=== PATIENT | male | born 1975 | race Caucasian/White ===

== ENCOUNTER 2024-06-07 09:10 | Outpatient (CLI) | payer BC, SELFPAY ==
--- NOTE | 2024-06-07 09:14 | XR_ITS ---
FINAL REPORT CLINICAL HISTORY: left elbow fx approx month ago COMPARISON: 04/30/2024 FINDINGS: LEFT ELBOW: 3 images of the left elbow were obtained. The radial head fracture noted on the prior exam of 04/30/2024 remains present, with alignment unchanged. There is callus formation present at the fracture site. There is persistent effusion or hemarthrosis present. There is no soft tissue abnormality identified. IMPRESSION: Radial head fracture remains present, with alignment unchanged. There is callus formation present at the fracture site. Persistent joint effusion or hemarthrosis. Reviewed, Interpreted and Dictated by Simone Valle III, MD Transcribed by Debby Armando Authenticated and [facility]
== END 2024-06-07 23:59 | disposition home or self-care (01) ==
LOC: RAD 09:12
PROVIDERS: PCP Internal Medicine Adolescent Medicine; Visit Provider Orthopaedic Surgery
DX: M25.522 Pain in left elbow (principal); S52.125A Nondisplaced fracture of head of left radius, initial encounter for closed fracture
CPT/HCPCS: 73080

== ENCOUNTER 2024-07-12 09:34 | Outpatient (CLI) | payer BC, SELFPAY ==
--- NOTE | 2024-07-12 09:38 | XR_ITS ---
PROCEDURE INFORMATION: Exam: XR Left Elbow Exam date and time: 07/12/2024 9:46 AM Age: 48 years old Clinical indication: Pain; Elbow; Left; Additional info: Left elbow TECHNIQUE: Imaging protocol: Radiologic exam of the left elbow. Views: 3 or more views. COMPARISON: No relevant prior studies available. FINDINGS: Bones/joints: There is a persistent fracture of the radial head with 2 mm offset/depression of the articular margin. Remaining osseous structures and joint surfaces unremarkable. Soft tissues: Unremarkable. No joint effusion detected. IMPRESSION: Redemonstration of patient's known fracture of the radial head with mild displacement of the articular surface.
== END 2024-07-12 23:59 | disposition home or self-care (01) ==
LOC: RAD 09:35
PROVIDERS: Visit Provider Orthopaedic Surgery
DX: S52.125A Nondisplaced fracture of head of left radius, initial encounter for closed fracture (principal)
CPT/HCPCS: 73080

== ENCOUNTER 2024-08-02 09:47 | Outpatient (CLI) | payer BC, SELFPAY ==
--- NOTE | 2024-08-02 09:50 | XR_ITS ---
FINAL REPORT CLINICAL HISTORY: fx f/u COMPARISON: 07/12/2024 FINDINGS: LEFT ELBOW 3 views were obtained. Again noted is a fracture of the radial head. Bony alignment is stable. There is joint effusion or hemarthrosis. No significant callus formation is seen. The joint spaces are intact. There is no soft tissue abnormality. IMPRESSION: Radial head fracture with no significant callus formation. Reviewed, Interpreted and Dictated by Simone Valle III, MD Transcribed by Nathalia Ball Authenticated and [facility]
== END 2024-08-02 23:59 | disposition home or self-care (01) ==
LOC: RAD 09:48
PROVIDERS: PCP Internal Medicine Adolescent Medicine; Visit Provider Orthopaedic Surgery
DX: S52.125A Nondisplaced fracture of head of left radius, initial encounter for closed fracture (principal)
CPT/HCPCS: 73080

== ENCOUNTER 2024-08-20 11:00 | Outpatient (RCR) | payer BC, SELFPAY | END 2024-08-20 23:59 | disposition home or self-care (01) | LOC: OT 11:00 | PROVIDERS: PCP Internal Medicine Adolescent Medicine; Visit Provider Orthopaedic Surgery | DX: M25.522 Pain in left elbow (principal); S52.122A Displaced fracture of head of left radius, initial encounter for closed fracture | CPT/HCPCS: 97014; 97035; 97110; 97140; 97165; G0283 ==

== ENCOUNTER 2024-12-11 13:00 | Outpatient (RCR) | payer BC, SELFPAY | END 2024-12-11 23:59 | disposition home or self-care (01) | LOC: PT 13:00 | PROVIDERS: PCP Internal Medicine Adolescent Medicine; Visit Provider Nurse Practitioner | DX: M54.16 Radiculopathy, lumbar region (principal) | CPT/HCPCS: 97163 ==

== ENCOUNTER 2025-04-11 15:35 | Outpatient (CLI) | payer BC, SELFPAY ==
--- OUTSIDE RECORDS SUMMARY | 2025-02-20 13:15 | XMS_ITS | Encounter Summary ---
Author Organization [employer] ([place], [place], [place]) Address [address] [place] [address] Care Team Providers Care Jewelry Department Supervisor Name Role Phone Kar Wright MD Primary Care Provider [phone] Reason for Visit * Reason Comments Peripheral Neuropathy Back Pain Cervical Radiculopathy Encounter Details Date Type Department Care Team (Late st Contact Info) Description 02/20/2025 1:15 PM EDT Office Visit [facility] Neurology - [facility] [address] [facility] [address] [place] [address] Ashley Mccormick, DIPLOMATIC INTERPRETER/TRANSLATOR [address] [facility] [address] [place] [address] Neuropathy Social History Tobacco Use Types Packs/Day Years Used Date Smoking Tobacco: Some Days Cigarettes Smokeless Tobacco: Never Alcohol Use Standard Drinks/Week Comments Never 0 (1 standard drink = 0.6 oz pur e alcohol) Family and Community Support Answer Juan A e Recorded Help with Day to Day Activities Not on file 06/21/2024 Feeling Lonely or Isolated Not on file 06/21 Educational Attainment Answer Date Jed rded Speak language other than Armenian at home Not on file 06/21/2024 Want help with school or training Not on file 06/21/2024 Substance Use Answer Date Recorded Used prescription meds for non-medical reasons N ot on file 06/21/2024 Used illegal drugs past 12 months Not on file 06/21/2024 Sex and Gender Information Value Date Recorded Sex Assigned at Not on file Legal Sex Male 6:05 PM CDT Gender Identity Not on file Sexual Orientation Not on file documented as of this encounter Last Filed Vital Signs Vital Sign Reading Time Taken Comments Blood Pressure 137/85 02/20/2025 1:40 PM EDT Pulse 79 02/20/2025 1:40 PM EDT Temperature - - Respiratory Rate - - Oxygen Saturation 97% 02/20/2025 1:40 PM EDT Inhaled Oxygen Concentration - - Weight 160.3 kg (353 lb 8 oz) 02/20/2025 1:40 PM EDT Height 188 cm (6' 2 ) 02/20/2025 1:40 PM EDT Body Mass Index 45.39 02/20/2025 1:40 PM EDT documented in this encounter Progress Notes * Ashley Sprague Anny, DIPLOMATIC INTERPRETER/TRANSLATOR - 02/20/2025 1:15 PM EDT Subjective: Sourav Joel is a 49 y.o. male. Chief Complaint Patient presents with Peripheral Neuropathy Back Pain Cervical Radiculopathy I have reviewed and/or updated the following: Tobacco Allergies Meds Problems Med Hx Surg Hx Fam Hx History: Mr. Joel is here today for consultation regarding abnormal EMG . Experiencing left foot pain for over a year. He experiences burning on the side of her left foot around his ankle. The severity of the pain varies but often times it is severe and interferes with hisdaily life. More activity or standing worsens the pain. He stands a lot for his job at [employer]. Has tried Ibuprofen with no benefit. No symptoms in the right foot or leg. Has never tried gabapentin. 05/22/24 MRI Left Foot and Ankle - Muscular denervation along the lateral plantar nerve with irregularity of the lateral plantar nerve. 06/07/24 NCV/EMG ([facility]) - A sensory greater than motor polyneuropathy process. Normal EMG. 01/20/22 MRI Lumbar Spine ([facility] - Multi-level degenerative changes and several small disc herniations most pronounced at L5-S1 on the left. Over time he does feel his lower back pain has worsened, described as numb/burning sensation to thelower back that comes and goes. Sometimes experiences burning sensation to the left lateral calf and thigh. 12/12/24 NCV/EMG - Left L4-5 radiculopathy, right L5-S1 radiculopathy. Today: Saw orthopedics who gave him an SI joint injection. He had 3-4 days of benefit. States they also ordered an MRI of the left ankle. Continues gabapentin which helps his nerve pain. Current dose is adequate. Review of Systems Musculoskeletal: Positive for arthralgias. Objective: BP 137/85 Pulse 79 Ht 1.88 m (6' 2 ) Wt (!) 160.3 kg (353 lb 8 oz) SpO2 97% BMI 45.39 kg/m?? Physical Exam Constitutional: He is oriented to person, place, and time. HENT: Head: Normocephalic. Eyes: Pupils are equal, round, and reactive to light. Conjunctivae are normal. Cardiovascular: Normal rate. Pulmonary/Chest: Effort normal. Abdominal: Normal appearance. Musculoskeletal: General: Normal range of motion. Cervical back: Normal range of motion. Neurological: He is alert and oriented to person, place, and time. Decreased sensation (tmp, vib) left LE (L5-S1 distribution) Skin: Skin is warm and dry. Psychiatric: Mood normal. Neurological Exam Mental Status Alert. Oriented to person, place, and time. Cranial Nerves CN III, IV, : Extraocular movements intact bilaterally. Pupils equal round and reactive to light bilaterally. Decreased sensation (tmp, vib) left LE (L5-S1 distribution) . Assessment: 1. Neuropathy Plan: Diagnoses and all orders for this visit: Neuropathy - gabapentin (NEURONTIN) 300 MG capsule; Take 1 capsule (300 mg total) by mouth 4 (four) times daily. Max Daily Amount: 1,200 mg Return in about 6 months (around 08/22/2025). Mr. Joel has had left neuropathic foot pain for over a year. NCV study 06/07/24 showed a sensorygreater than motor polyneuropathy process. EMG 12/12/24 showed left L4-5 radiculopathy and right L5-S1 radiculopathy. Had new MRI L-spine done and was referred to orthopedics who did SI joint injection. They also ordered a left ankle MRI. Continue gabapentin, re-filled today. F/u 6 months. documented in this encounter Plan of Treatment Not on file documented as of this encounter Visit Diagnoses Diagnosis Neuropathy Mononeuritis of unspecified site documented in this encounter Care Teams Jewelry Department Supervisor Relationship Specialty Start Date End Date Kar Wright MD PCP - General Podiatry 06/20/24 documented as of this encounter
--- OUTSIDE RECORDS SUMMARY | 2025-04-11 15:37 | XMS_ITS | Encounter Summary ---
Author Organization [employer] ([place], [place], [place], [place]) Address [address] [place] [address] Care Team Providers Care Therapeutic Mentor Name Role Phone Kar Wright MD Primary Care Provider [phone] Reason for Visit * Reason Comments Medication Refill Encounter Details Date Type Department Care Team (Late st Contact Info) Description 04/08/2025 Refill [facility] Neurology - [facility] [address] [facility] [address] [place] [address] Ashley Mccormick, ROSLYN [address] [facility] [address] [place] [address] Neuropathy Social History Tobacco Use Types Packs/Day [...] Date Jed rded Speak language other than Sami at home Not on file 06/21/2024 Want [...] on file documented as of this encounter Plan of Treatment Not on file documented as of this encounter Visit Diagnoses Diagnosis Neuropathy Mononeuritis of unspecified site documented in this encounter Care Teams Therapeutic Mentor Relationship Specialty Start Date End Date Kar Wright MD PCP - General Podiatry 06/20/24 documented as of this encounter
--- OUTSIDE RECORDS SUMMARY | 2025-04-11 15:37 | XMS_ITS | Referral Summary ---
Author Organization [employer] ([place], [place], [place], [place]) Address [address] [place] [address] Care Team Providers Care Refrigeration Repair Supervisor Name Role Phone Kar Wright MD Primary Care Provider [phone] Encounters Date Type Department Care Team Description 04/08/2025 Refill [facility] Neurology [facility] [address] [place] [address] Aslhey Mccormick APRN Neuropathy 02/20/2025 Travel 02/20/2025 1:15 PM EDT Office Visit [facility] [address] [place] [address] Ashley Mccormick APRN Neuropathy 01/29/2025 Abstract [facility] [address] [place] [address] Christi Corbin CMA from Last 3 Months Allergies Active Allergy Reactions Criticality Noted Date Comments Shellfish Containing Products 2021 Medications Trulicity 1.5 mg/0.5 mL syringe Inject 0.5 mLs (1.5 mg total) subcutaneously once a week. 4 Active gabapentin (NEURONTIN) 300 MG capsuleIndicat ions:Neuropath y Take 1 capsule (300 mg total) by mouth 4 (four) times daily. Max Daily Amount: 1,200 mg 120 capsule 5 5 026 Active Active Problems No known active problems Social History Tobacco Use Types Packs/Day Years Used Date Smoking Tobacco: Some Days Cigarettes Smokeless Tobacco: Never Tobacco Cessation:Ready to Q uit: Not Asked; Counseling Given: Not Answered Alcohol Use Standard Drinks/Week Comments Never 0 (1 standard drink = 0.6 oz pur e alcohol) Family and Community Support Answer Juan A e Recorded Help with Day to Day Activities Not on file 06/21/2024 Feeling Lonely or Isolated Not on file 06/21 Educational Attainment Answer Date Jed rded Speak language other than Emirati at home Not on file 06/21/2024 Want [...] on file Sexual Orientation Not on file Last Filed Vital Signs Vital Sign Reading [...] Mass Index 45.39 02/20/2025 1:40 PM EDT Plan of Treatment Not on file [place] [place] [id number] BLUE CROSS/BLUE SHIELD Care Teams Refrigeration Repair Supervisor Relationship Specialty Start Date End Date Kar Wright MD PCP - General Podiatry 06/20/24
--- OUTSIDE RECORDS SUMMARY | 2025-04-11 15:37 | XMS_ITS | Clinical Summary ---
Author Organization [employer] ([place], [place], [place], [place]) Address [address] [place] [address] Care Team Providers Care Real Estate Assistant Name Role Phone Kar Wright MD Primary Care Provider [phone] Allergies Active Allergy Reactions Criticality Noted Date [...] Active Active Problems No known active problems Encounters Date Type Department Care Team Description 04/08/2025 Refill [facility] Neurology [facility] [address] [place] [address] Ashley Mccormick APRN Neuropathy 02/20/2025 1:15 PM EDT Office Visit [facility] [address] [place] [address] Ashley Mccormick APRN Neuropathy 02/20/2025 Travel 01/29/2025 Abstract [facility] [address] [place] [address] Christi Corbin CMA from Last 3 Months Family History Medical History Relation Name Comments Diabetes Father Heart disease Father Hypertension Father Hypertension Mother Relation Name Status Comments Father Mother Social History Tobacco Use Types Packs/Day Years [...] Date Jed rded Speak language other than Cape Verdean at home Not on file 06/21/2024 Want [...] 02/20/2025 1:40 PM EDT Plan of Treatment Health Maintenance Due Date Last Done Comments CT Colonography 1977 Colonoscopy 1977 Colorectal Cancer Screening 1977 FOBT/FIT 1977 Fit-DNA (Cologuard) 1977 Sigmoidoscopy 1977 Depression Screening (12+) 1989 Tobacco Cessation Counseling and Screening (12+) 08/13 HIV Screening 1992 Hepatitis C Screening 1995 Pneumococcal Vaccine: 0-49 Years (1 of 2 - PCV) 1995 DTAP/TDAP/TD VACCINES (2 - Td or Tdap) 10/26/2005 Lipid Panel 2012 COVID-19 VACCINE (2023- season) 2024 Influenza Vaccine (#1) 2025 Insurance BLUE CROSS/BLUE SHIELD Care Teams Real Estate Assistant Relationship Specialty Start Date End Date Kar Wright MD PCP - General Podiatry 06/20/24
--- OUTSIDE RECORDS SUMMARY | 2025-04-11 15:37 | XMS_ITS | Clinical Summary ---
Author Organization [facility] Address [address] [place] [address] Phone [email or web address] Care Team Providers Care Roof Slater Name Role Phone Unavailable Primary Care Provider Unavailabl e Allergies No known active allergies Medications Trulicity, dulaglutide, 1.5 mg/0.5mL SC Auto-injector INJECT 1.5 MG SUBCUTANEOUSLY ONCE A WEEK DIRECTED 4 Active gabapentin (NEURONTIN) 300 MG capsule 5 Active Active Problems No known active problems Social History Tobacco Use Types Packs/Day Years Used Date Smoking Tobacco: Every Day Cigarettes Smokeless Tobacco: Never Tobacco Cessation:Ready to Q uit: Not Asked; Counseling Given: Not Answered Intimate Partner Violence Answer Date R ecorded Insults You Not on file 08/05/2021 Threatens You Not on file 08/05/2021 Screams at You Not on file 08/05/2021 Physically Hurt Not on file 08/05/2021 Intimate Partner Violence Score Not on file 08/05/2021 Depression Answer Date Recorded PHQ Total Score 0 09/04/2024 Stress Answer Date Recorded Stress in your Life Not on file 07/02/2024 Dealing with Stress 3 07/02/2024 Sex and Gender Information Value Date Recorded Sex Assigned at Not on file Legal Sex Male 6:44 PM DENTAL TECH Gender Identity Not on file Sexual Orientation Not on file Last Filed Vital Signs Vital Sign Reading Time Taken Comments Blood Pressure 123/82 09/20/2024 3:51 PM EST Pulse 104 09/20/2024 3:51 PM EST Temperature 36.2 C (97.2 F) 08/05/2021 12:58 PM EST Respiratory Rate 20 09/20/2024 3:51 PM EST Oxygen Saturation 97% 09/20/2024 3:51 PM EST Inhaled Oxygen Concentration - - Weight 171 kg (377 lb) 08/05/2021 12:58 PM EST Height 188 cm (6' 2 ) 08/05/2021 12:58 PM EST Body Mass Index 48.4 08/05/2021 12:58 PM EST Plan of Treatment Health Maintenance Due Date Last Done Comments CT Colonography 1977 Colonoscopy 1977 Colorectal Cancer Screening Combo 1977 DNA Cologuard 1977 Dental Cleaning/Exam 1977 FIT or FOBT Test 1977 HIV Screening 1977 Hepatitis C Screening 1977 Sigmoidoscopy 1977 Hep B Infection Screening - Triple Screen 1995 Tetanus Diphtheria and Pertu ssis Immunization (2 - Tdap) 10/28/1995 10/27/1995 Hepatitis B Immunization (1 of 3 - 19+ 3-dose series) 1996 Pneumococcal: Ped (0 to 5 Yr s) and At-Risk Member (6 to 64 Yrs) (1 of 2 - PCV) 1996 Annual Preventive Exam 08/05/2022 08/05/2021 Covid-19 Immunization (1 - 2 024-25 season) 2024 Influenza Immunization (#1) 2025 HIB Immunization Aged Out No longer e ligible based on patient's age to complete this topic HPV Immunization Aged Out No longer e ligible based on patient's age to complete this topic Hepatitis A Immunization Aged Out No longer eligible based on patient's age to complete this topic Polio Immunization Aged Out No longer eligible based on patient's age to complete this topic Insurance OPT OUT NO COPAY NB
--- NOTE | 2025-04-11 15:38 | XR_ITS ---
FINAL REPORT CLINICAL HISTORY: LEFT FOOT PAIN SWELLING OF LEFT FOOT FINDINGS: LEFT FOOT Three views were obtained. There is no fracture or dislocation. The joint spaces appear normal. No soft tissue abnormality is identified. There is mild calcaneal spurring. IMPRESSION: No acute process. Reviewed, Interpreted and Dictated by Aj Morin MD Transcribed by Renae Seymour Authenticated and [facility]
--- OUTSIDE RECORDS SUMMARY | 2025-04-11 15:38 | XMS_ITS | Encounter Summary ---
Author Organization [employer] ([place], [place], [place], [place]) Address [address] [place] [address] Care Team Providers Care Mixer Blender Name Role Phone Kar Wright MD Primary Care Provider [phone] Reason for Referral * Consultation (Routine) - Closed Specialty Diagnoses / Procedures Referred By Matthew t Referred To Contact Neurology Diagnoses Abnormal results of other function studies of peripheral nervous system New pt-Abnormal EMG Results Kar Wright MD [address] [address] Phone: tel: fax: [facility] Neurology - [facility] [address] [place] [address] Phone: tel: fax: Referral ID Status Reason Start Date Expiration Date Visits Re quested Visits Authorized [id number] Closed 06/14/2024 06/14/2025 1 1 Encounter Details Date Type Department Care Team (Late st Contact Info) Description 06/14/2024 Outside Orders [facility] Neurology - [facility] [address] [place] [address] Kar Wright MD [address] [address] Abnormal results of other function studies of peripheral nervous system (Primary Dx) Social History Tobacco Use Types Packs/Day Years Used Date Smoking Tobacco: Never Assessed Sex and Gender Information Value Date Recorded Sex Assigned at Not on file Legal Sex Male 6:05 PM CDT Gender Identity Not on file Sexual Orientation Not on file documented as of this encounter Plan of Treatment Scheduled Referrals Name Type Priority Associated Diagnoses Order Schedule Ambulatory referral to Neurology Outpatient Referral Routine Abnormal results of other function studies of peripheral nervous system Ordered: 06/14/2024 documented as of this encounter Visit Diagnoses Diagnosis Abnormal results of other function studies of peripheral nervous system- Primary documented in this encounter Care Teams Mixer Blender Relationship Specialty Start Date End Date Kar Wright MD PCP - General Podiatry 06/20/24 documented as of this encounter
--- OUTSIDE RECORDS SUMMARY | 2025-04-11 15:38 | XMS_ITS | Encounter Summary ---
Author Organization [employer] ([place], [place], [place], [place]) Address [address] [place] [address] Care Team Providers Care Coding Specialist Home Health Name Role Phone Kar Wright MD Primary Care Provider [phone] Encounter Details Date Type Department Care Team (Latest Contact Info) Description 02/20/2025 Travel Social History Tobacco Use Types Packs/Day Years [...] Date Jed rded Speak language other than Uruguayan at home Not on file 06/21/2024 Want [...] documented as of this encounter Visit Diagnoses Not on filedocumented in this encounter Care Teams Coding Specialist Home Health Relationship Specialty Start Date End Date Kar Wright MD PCP - General Podiatry 06/20/24 documented as of this encounter
--- OUTSIDE RECORDS SUMMARY | 2025-04-11 15:38 | XMS_ITS | Clinical Summary ---
Author Organization [facility] Address [address] [facility] [address] [place] [address] Care Team Providers Care Cutting Machine Fixer Name Role Phone Pcp, None Primary Care Provider Unavailabl e Social History Tobacco Use Types Packs/Day Years Used Date Smoking Tobacco: Never Assessed Sex and Gender Information Value Date Recorded Sex Assigned at Not on file Legal Sex Male 8:58 AM EST Gender Identity Not on file Sexual Orientation Not on file Plan of Treatment Health Maintenance Due Date Last Done Comments CT Colonography 1977 Colonoscopy 1977 Colorectal Cancer Screening 1977 FIT-DNA (Cologuard) 1977 FIT 1977 FOBT 1977 HIV Screening 1977 Hepatitis C Screening 1977 Lipid Panel 1977 Sigmoidoscopy 1977 MMR Vaccines (1 of 1 - Stand kali series) 1978 Hepatitis B Screening 1995 DTaP/Tdap/Td Vaccines (1 - Tdap) 1996 Hepatitis B Vaccines (1 of 3 - 19+ 3-dose series) 1996 COVID-19 Vaccine ( - 2023-2 5 season) 2024 Depression Risk Screening 08/29/2024 SDOH Screening 08/29/2024 Influenza Vaccine (#1) 2025 Zoster Vaccines (1 of 2) 2027 HIB Vaccines Aged Out No longer eligi ble based on patient's age to complete this topic HPV Vaccines Aged Out No longer eligi ble based on patient's age to complete this topic Hepatitis A Vaccines Aged Out No long er eligible based on patient's age to complete this topic IPV Vaccines Aged Out No longer eligi ble based on patient's age to complete this topic Meningococcal B Vaccine Aged Out No l onger eligible based on patient's age to complete this topic Meningococcal Vaccine Aged Out No cole gigi eligible based on patient's age to complete this topic Pneumococcal Vaccine Aged Out No long er eligible based on patient's age to complete this topic Rotavirus Vaccines Aged Out No longer eligible based on patient's age to complete this topic Insurance [employer] Care Teams Cutting Machine Fixer Relationship Specialty Start Date End Date Pcp, None PCP - General 09/01/21
--- OUTSIDE RECORDS SUMMARY | 2025-04-11 15:38 | XMS_ITS | Encounter Summary ---
Author Organization [employer] ([place], [place], [place], [place]) Address [address] [place] [address] Care Team Providers Care Forestry Adviser Name Role Phone Kar Wright MD Primary Care Provider [phone] Encounter Details Date Type Department Care Team (Late st Contact Info) Description 01/29/2025 Abstract [facility] Neurology - [facility] [address] [place] [address] Christi Corbin CMA Social History Tobacco Use Types Packs/Day Years [...] Date Jed rded Speak language other than Anguillan at home Not on file 06/21/2024 Want [...] on filedocumented in this encounter Care Teams Forestry Adviser Relationship Specialty Start Date End Date Kar Wright MD PCP - General Podiatry 06/20/24 documented as of this encounter
[2025-04-11 16:19] LABS: Hematocrit 39.7 % (42.0-52.0); Hemoglobin 13.2 g/dL (14.1-18.0); Immature Granulocytes % 0.3 %; Mean Corpuscular HGB Conc 33.2 g/dL (31.8-35.4); Mean Corpuscular Hemoglobin 30.0 pg (27.0-31.2); Mean Corpuscular Volume 90.2 fl (80-94); Nucleated Red Blood Cells % 0 %; Platelet Count 235 K/mm3 (142-424); Red Blood Count 4.40 M/mm3 (4.60-6.20); Red Cell Distribution Width-SD 44.7 fL; White Blood Count 6.7 K/mm3 (4.8-10.8)
[2025-04-11 16:29] LABS: Uric Acid 4.9 mg/dl (3.5-8.5)
[2025-04-11 16:37] LABS: C-Reactive Protein 16.3 mg/L (0-4)
== END 2025-04-11 23:59 | disposition home or self-care (01) ==
LOC: LAB 15:35
PROVIDERS: PCP Internal Medicine Adolescent Medicine; Visit Provider Nurse Practitioner Family
DX: M79.672 Pain in left foot (principal); M79.89 Other specified soft tissue disorders
CPT/HCPCS: 36415; 73630; 84550; 85025; 85651; 86140

== ENCOUNTER 2025-05-04 09:30 | Emergency (ER) | payer BC, SELFPAY ==
--- OUTSIDE RECORDS SUMMARY | 2025-04-22 16:30 | XMS_ITS | Encounter Summary ---
Author Organization [facility] Address [address] [place] [id number] Phone [email or web address] Care Team Providers Care Surgery Attendant Name Role Phone Unavailable Primary Care Provider Unavailabl e Reason for Visit * Reason Comments Return to Work / Duty Encounter Details Date Type Department Care Team (Latest Contact Info) Description 04/22/2025 4:30 PM EDT Clinical Support [facility] [place] [address] [facility] [address] [place] [address] Rudy Vega RN [address] [place] [address] Return to work evaluation (Primary Dx) Social History Tobacco Use Types Packs/Day Years Used Date Smoking Tobacco: Every Day Cigarettes Smokeless Tobacco: Never Intimate Partner Violence Answer Date R ecorded [...] on file 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 Gender Identity Not on file Sexual Orientation Not on file documented as of this encounter Last Filed Vital Signs Vital Sign Reading Time Taken Comments Blood Pressure 158/89 04/22/2025 3:48 PM EDT Pulse 101 04/22/2025 3:48 PM EDT Temperature - - Respiratory Rate 18 04/22/2025 3:48 PM EDT Oxygen Saturation 95% 04/22/2025 3:48 PM EDT Inhaled Oxygen Concentration - - Weight - - Height - - Body Mass Index - - documented in this encounter Patient Instructions * Patient Instructions* Rudy Vega RN - 04/22/2025 4:30 PM EDT RTW Regular Duty per release note RTC PRN documented in this encounter Progress Notes * Rudy Vega RN - 04/22/2025 4:30 PM EDT Subjective Sourav Joel is a 49 y.o. male who presents for personal return to work after personal medical leave of absence for GOUT. 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 No LDW: 04/09/2025 DOS: N/A PROCEDURE: N/A SURGEON: N/A RELEASE: Regular Duty 04/22/25 Additional notes from phone call: None PMLOA. TM off r/t gout flare up of right foot. TM states started on Colchicine. Tm states this was an initial DX. TM states pain to foot has resolved. TM states swelling resolved. TM states 0/10 at rest and worst. TM states he feels ready to RTW. Triage nurse: ASC RN HPI History Reviewed: Tobacco Allergies Meds Med Hx Surg Hx Objective Visit Vitals BP (!) 158/89 Pulse 101 Resp 18 SpO2 95% Smoking Status Every Day Review of Systems PHQ-9 Total Score: 0 (04/22/2025 3:51 PM) Physical Exam Assessment: ICD-10-CM ICD-9-CM 1. Return to work evaluation Z76.89 V72.85 No orders of the defined types were placed in this encounter. Patient Instructions RTW Regular Duty per release note RTC PRN documented in this encounter Plan of Treatment Not on file documented as of this encounter Visit Diagnoses Diagnosis Return to work evaluation- Primary Other specified examination documented in this encounter
[2025-05-04] VITALS (9 sets, daily range): BP systolic 112–161; BP diastolic 55–101; PULSE 59–87; RESP 17–18; TEMP 36.6–36.8; O2SAT 96–97; BMI 44.8
--- NOTE | 2025-05-04 09:49 | CT_ITS ---
PROCEDURE INFORMATION: Exam: CT Abdomen And Pelvis With Contrast Exam date and time: 05/04/2025 10:23 AM Age: 49 years old Clinical indication: Abdominal pain; Generalized; Additional info: Diverticulitis vs. Left ureteral stone TECHNIQUE: Imaging protocol: Computed tomography of the abdomen and pelvis with contrast. Radiation optimization: All CT scans at this facility use at least one of these dose optimization techniques: automated exposure control; mA and/or kV adjustment per patient size (includes targeted exams where dose is matched to clinical indication); or iterative reconstruction. Contrast material: ISOVUE; Contrast volume: 75 ml; Contrast route: IV; COMPARISON: No relevant prior studies available. FINDINGS: Lungs: The lung bases are clear. Diaphragm: Small hiatus hernia. Liver: The liver is normal in appearance. No focal liver mass or intrahepatic biliary dilatation. Gallbladder and biliary ducts: The gallbladder is unremarkable with no calcified stones visualized and no strandy inflammatory changes surrounding the gallbladder. Pancreas: The pancreas is normal in appearance. No evidence of pancreatic ductal dilatation. Spleen: Multiple splenic calcifications suggesting old granulomatous disease. Adrenal glands: There is a 2 cm left adrenal nodule which is relatively low-density with Hounsfield units averaging about 11 suggesting a benign left adrenal adenoma. The right adrenal gland is normal in appearance. Kidneys and ureters: The right kidney is normal in appearance. There is trace left hydronephrosis and left hydroureter secondary to a 2 mm calculus at the left UVJ which has almost passed into the urinary bladder. Stomach and bowel: The small bowel loops are not thickened and are nondilated. The colon is normal in appearance. Appendix: The appendix is normal in appearance. No evidence of appendicitis. Intraperitoneal space: Unremarkable. No free air. No significant fluid collection. Vasculature: Unremarkable. No abdominal aortic aneurysm. Lymph nodes: Unremarkable. No enlarged lymph nodes. Urinary bladder: The urinary bladder villa are not thickened. There is a fat containing periumbilical hernia. No entrapped bowel loop. Reproductive: Unremarkable as visualized. Bones/joints: There is normal anatomic alignment of the spine. No acute osseous lesions appreciated. Soft tissues: Small fat containing bilateral inguinal hernias. IMPRESSION: 1. Mild left hydronephrosis and left hydroureter secondary to a 2 mm calculus at the left UVJ which has almost passed into the urinary bladder. 2. There is a 2 cm low-density left adrenal nodule suggesting a benign left adrenal adenoma.
--- OUTSIDE RECORDS SUMMARY | 2025-05-04 09:50 | XMS_ITS | Clinical Summary ---
Author Organization [employer] ([place], [place], [place], [place]) Address [address] [place] [address] Care Team Providers Care Cyber Incident Handler Name Role Phone Kar Wright MD Primary Care Provider [phone] Allergies Active Allergy Reactions Criticality Noted Date [...] Type Department Care Team Description 04/08/2025 Refill [facility] Neurology [place] [address] [place] [address] Ashley Mccormick APRN Neuropathy 02/20/2025 1:15 PM EDT Office Visit [place] [address] [place] [address] Ashley Mccormick APRN Neuropathy 02/20/2025 Travel from Last 3 Months Family History Medical [...] Date Jed rded Speak language other than Sammarinese at home Not on file 06/21/2024 Want [...] Tdap) 10/26/2005 Lipid Panel 2012 COVID-19 VACCINE ( - season) 2024 Influenza Vaccine (#1) 2025 Insurance BLUE CROSS/BLUE SHIELD Care Teams Cyber Incident Handler Relationship Specialty Start Date End Date Kar Wright MD PCP - General Podiatry 06/20/24
--- OUTSIDE RECORDS SUMMARY | 2025-05-04 09:50 | XMS_ITS | Encounter Summary ---
Author Organization [facility] Address [address] [place] [address] Phone [email or web address] Care Team Providers Care Licensed Vocational Nurse Name Role Phone Unavailable Primary Care Provider Unavailabl e Encounter Details Date Type Department Care Team (Late st Contact Info) Description 04/19/2025 Telephone [facility] [address] [place] [address] No, [place] [address] Social History Tobacco Use Types Packs/Day Years [...] on file Legal Sex Male 6:44 PM [employer]ER [employer] Gender Identity Not on file Sexual Orientation Not on file documented as of this encounter Miscellaneous Notes * Telephone Encounter - COLLEEN TUCKER - 04/19/2025 3:17 PM EDT Sourav Wisam calls clinic to discuss return to work after personal medical leave of absence for GOUT. 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 No LDW: 04/09/2025 DOS: N/A PROCEDURE: N/A SURGEON: N/A RELEASE: Regular Duty Additional notes from phone call: None If WMLOA, still getting compensation from work comp? N/A If WMLOA, treatment for any personal medical condition during leave? No If PMLOA, work-related injury immediately before leave? No Same day occ or personal follow up scheduled? No Reviewed and/or scheduled for WC/WH? No Request sent to confirm cost center? N/A COLLEEN TUCKER documented in this encounter Plan of Treatment Not on file documented as of this encounter Visit Diagnoses Not on filedocumented in this encounter
--- OUTSIDE RECORDS SUMMARY | 2025-05-04 09:50 | XMS_ITS | Clinical Summary ---
Author Organization [facility] Address [address] [place] [address] Phone [email or web address] Care Team Providers Care Marina Dry Dock Manager Name Role Phone Unavailable Primary Care Provider Unavailabl e Allergies No known active allergies Medications Trulicity, dulaglutide, 1.5 mg/0.5mL SC Auto-injector INJECT 1.5 MG SUBCUTANEOUSLY ONCE A WEEK DIRECTED 4 Active gabapentin (NEURONTIN) 300 MG capsule 5 Active colchicine 0.6 MG tablet Take 0.6 mg by mouth 1 (one) time each day. 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
--- OUTSIDE RECORDS SUMMARY | 2025-05-04 09:50 | XMS_ITS | Referral Summary ---
Author Organization [employer] ([place], [place], [place], [place]) Address [address] [place] [address] Care Team Providers Care Urologist Md Name Role Phone Kar Wright MD Primary Care Provider [phone] Encounters Date Type Department Care Team Description 04/08/2025 Refill [facility] [address] [place] [address] Ashley Mccormick APRN Neuropathy 02/20/2025 Travel 02/20/2025 1:15 PM EDT Office Visit [place] [address] [place] [address] Ashley Mccormick APRN Neuropathy from Last 3 Months Allergies Active Allergy [...] Date Jed rded Speak language other than South Sudanese at home Not on file 06/21/2024 Want [...] Plan of Treatment Not on file [place] [address] [place] [id number] BLUE CROSS/BLUE SHIELD Care Teams Urologist Md Relationship Specialty Start Date End Date Kar Wright MD PCP - General Podiatry 06/20/24
--- OUTSIDE RECORDS SUMMARY | 2025-05-04 09:50 | XMS_ITS | Clinical Summary ---
Author Organization [facility] Address [address] [facility] [address] [place] [address] Care Team Providers Care Publishing Agent Name Role Phone Pcp, None Primary Care [...] topic Insurance GENERIC WORK COMP Care Teams Publishing Agent Relationship Specialty Start Date End Date Pcp, None PCP - General 09/01/21
--- OUTSIDE RECORDS SUMMARY | 2025-05-04 09:50 | XMS_ITS | Encounter Summary ---
Author Organization [employer] ([place], [place], [place], [place]) Address [address] [place] [address] Care Team Providers Care Brim Setter Name Role Phone Kar Wright MD Primary Care Provider [phone] Reason for Referral * Consultation (Routine) - Closed Specialty Diagnoses / Procedures Referred By Matthew t Referred To Contact Neurology Diagnoses Abnormal results of other function studies of peripheral nervous system New pt-Abnormal EMG Results Kar Wrihgt MD [address] [address] Phone: tel: fax: [facility] Neurology - [facility] [address] [place] [address] Phone: tel: fax: Referral ID Status Reason Start Date Expiration Date Visits Re quested Visits Authorized [id number] Closed 06/14/2024 06/14/2025 1 1 Encounter Details Date Type Department Care Team (Late st Contact Info) Description 06/14/2024 Outside Orders [facility] Neurology - [facility] [address] [place] [address] Kar Wright MD [address] [address] Abnormal results of other function studies of [...] Primary documented in this encounter Care Teams Brim Setter Relationship Specialty Start Date End Date Kar Wright MD PCP - General Podiatry 06/20/24 documented as of this encounter
--- OUTSIDE RECORDS SUMMARY | 2025-05-04 09:50 | XMS_ITS | Encounter Summary ---
Author Organization [employer] ([place], [place], [place], [place]) Address [address] [place] [address] Care Team Providers Care Shellfish Shucker Name Role Phone Kar Wright MD Primary Care Provider [phone] Reason for Visit * Reason Comments Medication Refill Encounter Details Date Type Department Care Team (Late st Contact Info) Description 04/08/2025 Refill [facility] Neurology - [facility] [address] [facility] [address] [place] [address] Ashley Mccormick, ROSLYN [address] [facility] [address] [place] [address] Neuropathy Social History Tobacco Use Types Packs/Day [...] Date Jed rded Speak language other than Upper Sorbian at home Not on file 06/21/2024 Want [...] site documented in this encounter Care Teams Shellfish Shucker Relationship Specialty Start Date End Date Kar Wright MD PCP - General Podiatry 06/20/24 documented as of this encounter
[2025-05-04 09:54] LABS: Hematocrit 36.8 % (42.0-52.0); Hemoglobin 12.3 g/dL (14.1-18.0); Immature Granulocytes % 0.3 %; Mean Corpuscular HGB Conc 33.4 g/dL (31.8-35.4); Mean Corpuscular Hemoglobin 30.2 pg (27.0-31.2); Mean Corpuscular Volume 90.4 fl (80-94); Nucleated Red Blood Cells % 0 %; Platelet Count 222 K/mm3 (142-424); Red Blood Count 4.07 M/mm3 (4.60-6.20); Red Cell Distribution Width-SD 43.8 fL; White Blood Count 10.9 K/mm3 (4.8-10.8)
[2025-05-04 10:00] LABS: Lactate Venous 1.1 mmol/L (0.4-2.0)
[2025-05-04] MEDS: LACTATED RINGERS 1000ML 1,000 ML 999 ML IV (10:00)
[2025-05-04] MEDS: ONDANSETRON 4MG/2ML VIAL 4 MG IV (10:01)
[2025-05-04] MEDS: KETOROLAC 30MG/ML VIAL 30 MG IV (10:01)
[2025-05-04] MEDS: MORPHINE 4MG/ML SYRINGE 4 MG IV (10:01)
[2025-05-04 10:06] LABS: Albumin Level 4.2 g/dl (3.5-5.0); Chloride 111 mmol/L (98-107); Potassium 4.1 mmoL/L (3.5-5.1); Sodium 139 mmol/L (136-145)
[2025-05-04 10:09] LABS: Alanine Aminotransferase 24 U/L (12-78); Albumin/Globulin Ratio 1.5 (1.1-1.8); Alkaline Phosphatase 65 U/L (38-126); Anion Gap 10.1 mEq/L (5-15); Aspartate Amino Transferase 30 U/L (17-59); Bilirubin,Total 0.5 mg/dl (0.2-1.3); Blood Urea Nitrogen 19 mg/dl (9-20); Calcium 9.1 mg/dl (8.4-10.2); Carbon Dioxide 22 mmol/L (22.0-30.0); Creatinine Clearance Estimated 82 mL/min (50-200); Creatinine,Serum 1.30 mg/dl (0.66-1.25); Estimated Glomerular Filt Rate 59 ml/min (>60); GFR (African American) 72 ML/MIN (>60); Globulin 2.8 g/dL (1.3-3.2); Glucose 145 mg/dl (74-100); Lipase 62 U/L (23-300); Total Protein,Serum 7.0 g/dl (6.3-8.2)
--- NOTE | 2025-05-04 10:12 | ED_ITS ---
Discharge Plan Disposition Patient Disposition: Home, Self-Care Condition: Good Prescriptions Prescriptions: New tamsulosin 0.4 mg capsule 0.4 mg PO DAILY Qty: 14 0RF ketorolac 10 mg tablet 10 mg PO TID 5 Days Qty: 15 0RF No Action metformin 500 mg tablet 500 mg PO Patient Comments: TAKE 1 TABLET BY MOUTH TWICE DAILY atorvastatin 40 mg tablet 40 mg PO Patient Comments: TAKE 1 TABLET BY MOUTH AT BEDTIME oxycodone 5 mg tablet 5 mg PO Q8H PRN (Reason: pain (scale score 7-10)) Qty: 9 0RF Referrals Follow up/Referrals: Abisai Escobar MD [Primary Care Provider, Internal Medicine] - See instructions Activity Restrictions/Add. Instructions Additional Instructions/Restrictions: Please take Toradol for pain and Tamsulosin to help pass the stone more quickly. This is a 2mm stone that is right near the bladder so it should pass soon. IF you develop intractable pain, intractable nausea & vomiting, or fevers please return. Clinical Impressions Clinical Impression: Calculus of left ureter Instructions Patient Instructions: Kidney Stones -- Adult Print Language Print Language: Andorran Discharge ED Provider: Aiden Grant Adult HPI General Chief complaint: Abdominal Pain Stated complaint: Abd pain, Vomiting Time Seen by Provider: 05/04/25 09:43 Mode of Arrival: Ambulatory Source of Information: Patient Description of Symptoms (Recalled from ER Triage Doc. by RN): Patient states he has had left lower abdominal pain since about 0100 this morning that caused him to have nausea and vomiting. States he also had a loose watery bowel movement this morning. History of Present Illness HPI narrative: This is a 49-year-old male patient, with past medical history of hyperlipidemia and prediabetes, who is presenting to the emergency department today for evaluation of left lower quadrant abdominal pain. Patient states that his pain abruptly onset last night and he has had 1 episode of loose stools since the onset of symptoms. He also states that he has been drinking copious amounts of liquid and he has had difficulty with urination. No fevers. When the pain onset it was so severe in nature that it provoked vomiting. He is not experiencing chest pain or shortness of breath. Related Data Home Medications ?Medication ?Instructions ?Recorded ?Confirmed atorvastatin 40 mg tablet 40 mg PO 03/20/24 08/02/24 metformin 500 mg tablet 500 mg PO 03/20/24 08/02/24 Previous Rx's ?Medication ?Instructions ?Recorded oxycodone 5 mg tablet 5 mg PO Q8H PRN pain (scale score 04/30/24 7-10) #9 tabs ketorolac 10 mg tablet 10 mg PO TID 5 days #15 tabs 05/04/25 tamsulosin 0.4 mg capsule 0.4 mg PO DAILY #14 caps 02/20 Allergies Allergy/AdvReac Type Severity Reaction Status Date / Time shellfish derived AdvReac Rash Verified 05/04/25 09:42 [facility] Disclaimer: The information contained in this section may have been updated after the patient was seen, as this information can be updated by other users. Social History Smoking Status: Current every day smoker alcohol intake: never current occupational status: employed Travel in the last 8 weeks?: None Have you lived/traveled outside US in past 30 days?: No Contact w/someone who lives/traveled outside US past 30 days?: No Exposure to someone with infectious disease in past 14 days?: No Do you have a fever (greater than 100.4 F or 38 C)?: No Have you tested positive for COVID-19?: No Exposed to someone with COVID-19 in past 14 days?: No Do you have a sore throat?: No Do you have a cough?: No Do you have any weakness?: No Do you have any diarrhea?: No Are you experiencing any unusual bleeding?: No Do you have any muscle aches/pain?: No Do you have any abdominal pain?: No Are you experiencing loss of taste or smell?: No Other Medical History Have you received the Pneumonia Vaccine: No ROS Obtained: Yes Systems reviewed as appropriate & no additional complaints except as documented Physical Exam General General appearance: other (See MDM) Respiratory Respiratory exam: Present other (See MDM) Cardiovascular Cardiovascular exam: Present other (See MDM) Neurological Exam Neurological exam: Present other (See MDM) Medical Decision Making Medical Records Medical records reviewed: Yes I reviewed the patient's medical records. Screening: Per USPSTF and CDC recommendations, given the prevalence of disease in our region, it is our hospital?s policy to screen for HIV and viral Hepatitis for all patients aged 18 and over and those with ongoing risk factors. Hubert Inquiry Pt receiving controlled substance: No Hubert was queried for this patient: No Vital Signs: 05/04/25 09:37 05/04/25 09:46 05/04/25 10:01 Temperature 98.3 F Temperature Source Oral Pulse Rate 86 79 Pulse Rate [Right Brachial] 87 Respiratory Rate 17 Blood Pressure 153/80 H 122/72 Blood Pressure [Right Arm] 161/101 H Blood Pressure Mean [Right Arm] 121 Blood Pressure Source [Right Arm] Automatic Cuff Blood Pressure Position [Right Arm] Sitting 02 Sat by Pulse Oximetry 96 97 97 Oxygen Delivery Method Room Air 05/04/25 10:30 Temperature Temperature Source Pulse Rate 60 Pulse Rate [Right Brachial] Respiratory Rate Blood Pressure 125/63 Blood Pressure [Right Arm] Blood Pressure Mean [Right Arm] Blood Pressure Source [Right Arm] Blood Pressure Position [Right Arm] 02 Sat by Pulse Oximetry 96 Oxygen Delivery Method Lab Data Lab Results 05/04/25 09:47: WBC 10.9 H, RBC 4.07 L, Hgb 12.3 L, Hct 36.8 L, MCV 90.4, MCH 30.2, MCHC 33.4, RDW 13.3, Plt Count 222, MPV 9.4, Neut % (Auto) 74.4, Lymph % (Auto) 15.0, [place] % (Auto) 9.2, Eos % (Auto) 0.8, Baso % (Auto) 0.3, Neut # (Auto) 8.1 H, Lymph # (Auto) 1.6, [place] # (Auto) 1.0, Eos # (Auto) 0.1, Baso # (Auto) 0.0, Sodium 139, Potassium 4.1, Chloride 111 H, Carbon Dioxide 22, Anion Gap 10.1, BUN 19, Creatinine 1.30 H, Estimated Creat Clear 82, Estimated GFR 59, Est GFR ( Amer) 72, Glucose 145 H, Calcium 9.1, Total Bilirubin 0.5, AST 30, ALT 24, Alkaline Phosphatase 65, Total Protein 7.0, Albumin 4.2, Globulin 2.8, Albumin/Globulin Ratio 1.5, Lipase 62, HCV Ab DARLING w/Rflx PCR Qn Negative, HIV Ag/Ab Combo Qual Negative 05/04/25 09:50: VBG Lactic Acid 1.1 05/04/25 11:10: Urine Color Yellow, Urine Appearance Clear, Urine pH 5.5, Ur Specific [place] 1.020, Urine Protein Negative, Urine Glucose (UA) Negative, Urine Ketones Negative, Urine Blood Negative, Urine Nitrate Negative, Urine Bilirubin Negative, Urine Urobilinogen 0.2, Ur Leukocyte Esterase Negative, Urine RBC None, Urine WBC None, Ur Squamous Epith Cells Occasional, Urine Bacteria None 05/04/25 09:47 05/04/25 09:47 Orders (Tests/Meds): ED MEDICATIONS Discontinued Medications Generic Name Dose Route Start Last Admin Trade Name Wilfredo PRN Reason Stop Dose Admin Lactated Ringer's 1,000 mls @ 999 mls/hr 05/04/25 09:50 05/04/25 11:11 Lactated Ringer's 1000 Ml Bag IV 05/04/25 10:50 Infused .Q1H1M ONE Infusion Iopamidol 75 ml 05/04/25 10:27 05/04/25 10:28 Iopamidol-370 (76%);100ml Bottle IV 05/04/25 10:28 75 ml ONCE ONE Administration Ketorolac Tromethamine 30 mg 05/04/25 09:50 05/04/25 10:01 Ketorolac 30mg/Ml Vial IV 05/04/25 09:51 30 mg ONCE ONE Administration Morphine Sulfate 4 mg 05/04/25 09:50 05/04/25 10:01 Morphine 4mg/Ml Syringe IV 05/04/25 09:51 4 mg ONCE ONE Administration Ondansetron HCl 4 mg 05/04/25 09:50 05/04/25 10:01 Ondansetron 4mg/2ml Vial IV 05/04/25 09:51 4 mg ONCE ONE Administration Sodium Chloride 10 ml 05/04/25 10:27 05/04/25 10:28 Sodium Chloride 0.9% 10ml Syr (Rad Only) IV 05/04/25 10:28 10 ml ONCE ONE Administration ORDERS Category Date Time Status CT abdomen pelvis w con Stat Cat Scan 05/04/25 09:49 Completed CBC w/Auto Diff [Complete Blood Count Auto Diff] Stat Lab 05/04/25 09:47 Completed CMP [Comprehensive Metabolic Panel] Stat Lab 05/04/25 09:47 Completed HIV Combo Stat Lab 05/04/25 09:47 Completed Hepatitis C Ab Qual. W/ RFX Stat Lab 05/04/25 09:47 Completed Lactate Venous Stat Lab 05/04/25 09:50 Completed Lipase Stat Lab 05/04/25 09:47 Completed UA [Urinalysis and Microscopic] Stat Lab 05/04/25 11:10 Completed Medical Decision Narrative: In summary, this is a 49-year-old male patient who is presenting to the emergency department today for evaluation of left lower quadrant abdominal pain that is intermittent and very sharp in nature and provokes vomiting. He also states that since the onset of his pain he has had difficulty producing urine despite drinking copious amounts of fluid. Comorbidities include prediabetes as well as hypertension. On initial evaluation of the patient they were resting comfortably in no acute distress and nontoxic in appearance. They are hemodynamically stable, saturating well room air, and are neurologically intact. On physical examination his heart and lungs are clear to auscultation bilaterally. He does not have any abdominal tenderness to palpation and he also does not have any CVA tenderness to palpation. During my examination he did develop severe worsening of this pain and began rocking back and forth and clutching his abdomen. Differential diagnosis includes ureterolithiasis, infected stone, pyelonephritis, diverticulitis, intra-abdominal abscess, pancreatitis, among others. Patient does not have much in the way of risk factors for acute mesenteric ischemia and does not describe his pain to be postprandial in nature. Workup was initiated with a CT scan of the abdomen pelvis with IV contrast. We have also obtained hematologic labs. Initial interventions included 4 mg of morphine, 30 mg of Toradol, and 4 mg of Zofran. Labs personally interpreted by me demonstrate no maxillary maladies. Creatinine is 1.3 and I do not have a baseline to compare this to. Urinalysis interpreted by me demonstrates no evidence of urinary tract infection. CT scan of the abdomen and pelvis was personally turbid by me and demonstrates left-sided hydronephrosis with what appears to be a distal left ureteral calculus. Official radiology read is in agreement and states that this is a 2 mm calculus with upstream hydronephrosis. On repeat reassessment the patient is pain is controlled. We will send Toradol and tamsulosin to the pharmacy with the patient to take over the next 2 days. Return precautions have been given in the setting of development of intractable nausea vomiting, intractable pain, or development of fevers. At this time all questions have been answered and all parties are agreeable with the decision to discharge home. Critical Care Critical Care Time Critical Care Time: No
[2025-05-04] MEDS: SODIUM CHLORIDE 0.9% 10ML SYR (RAD ONLY) 10 ML IV (10:28)
[2025-05-04] MEDS: IOPAMIDOL-370 (76%);100ML BOTTLE 75 ML IV (10:28)
--- NOTE | 2025-05-04 10:41 | PC.NURSE ---
171 on bladder scan
--- NOTE | 2025-05-04 11:06 | PC.NURSE ---
Advised pt he needs to urinate, said he would attempt.
[2025-05-04 11:40] LABS: Microscopic, Urine URINE MICROSCOPIC (MICROSCOPIC)
[2025-05-04 11:41] LABS: Bilirubin,Urine Negative (Negative); Color,Urine YELLOW (Yellow); Glucose,Urine (UA) Negative (Negative); Ketones,Urine Negative (Negative); Leukocyte Esterase,Urine Negative (Negative); PH,Urine 5.5 (5.0-8.5); Protein,Urine Negative (Negative); Specific Gravity, Urine 1.020 (1.005-1.030); Urobilinogen,Urine 0.2 EU/dl (0.2)
[2025-05-04 11:52] LABS: Squamous Epithelial Cell,Urine Occasional #/hpf (0-5)
[2025-05-04 12:00] LABS: Hepatitis C Ab Qual. W/ RFX NEGATIVE (Negative)
== END 2025-05-04 12:24 | disposition home or self-care (01) ==
PROVIDERS: Emergency Provider Student in an Organized Health Care Education/Training Program; PCP Internal Medicine Adolescent Medicine
DX: N20.1 Calculus of ureter (principal)
CPT/HCPCS: 74177; 80053; 81001; 83605; 83690; 85025; 86803; 87389; 96361; 96374; 96375; 99285; J1885; J2270; J2405; J7120; Q9967